=== PATIENT | male | born 1940 | race Caucasian/White ===

== ENCOUNTER 2017-09-21 08:31 | Outpatient (CLI) | payer OTHER | END 2017-09-21 20:59 | disposition home or self-care (01) | LOC: SMI 08:31 → EEVIPCON 08:31 → SMI 20:59 | PROVIDERS: ATTEND Psychiatry & Neurology Neurology | DX: I63.9 Cerebral infarction, unspecified (principal); N19 Unspecified kidney failure; R53.1 Weakness | CPT/HCPCS: 70544; 70547; 70551 ==

== ENCOUNTER 2019-06-05 18:19 | Emergency (ER) | payer OTHER, MEDICARE ==
[~2019-06-05] VITALS: Ht 162.6 cm; Wt 59.9 kg
[2019-06-05 18:25] VITALS: BP_SYST 108
[2019-06-05] MEDS ORDERED: NS 500 ML IV ONE (18:45)
[2019-06-05] MEDS ORDERED: NACL 0.9% 1,000 ML IV ONE (18:45)
[2019-06-05] MEDS ORDERED: FOLI-43 PO (19:06)
[2019-06-05] MEDS ORDERED: METO25TA3 PO (19:06)
[2019-06-05] MEDS ORDERED: MIDO5TAB PO (19:06)
[2019-06-05] MEDS ORDERED: CEL20 PO (19:06)
[2019-06-05] MEDS ORDERED: DONE10TA44 PO (19:06)
[2019-06-05] MEDS ORDERED: ASPI-1153 PO (19:06)
[2019-06-05] MEDS ORDERED: FINA5TAB3 PO (19:06)
[2019-06-05] MEDS ORDERED: TAMS-11 PO (19:06)
[2019-06-05] MEDS ORDERED: MIRT15TA7 PO (19:06)
[2019-06-05] MEDS ORDERED: SENN-104 PO (19:06)
[2019-06-05] MEDS ORDERED: LIP10 PO (19:06)
[2019-06-05] MEDS ORDERED: OLAN2.5T29 PO (19:06)
[2019-06-05] MEDS ORDERED: FERR140T2 PO (19:06)
[2019-06-05] MEDS ORDERED: PRO40 PO (19:06)
[2019-06-05 19:15] LABS: BASOPHILS # (AUTO) 0.1 K/uL (0.0-0.2); BASOPHILS % (AUTO) 0.8 % (0.0-2.0); EOSINOPHILS # (AUTO) 0.3 K/uL (0.0-0.4); EOSINOPHILS % (AUTO) 2.9 % (0.0-4.0); HEMATOCRIT 32.6 % (36-54); HEMOGLOBIN 10.7 g/dL (14.0-18.0); LYMPHOCYTES # (AUTO) 0.8 K/uL (1.0-5.5); LYMPHOCYTES % (AUTO) 8.8 % (20.5-51.5); MEAN CORPUSCULAR HEMOGLOBIN 31 pg (27-31); MEAN CORPUSCULAR HGB CONC 33 % (32-36); MEAN CORPUSCULAR VOLUME 95 fL (79.0-98.0); MONOCYTES % (AUTO) 10.6 % (1.7-9.3); NEUTROPHILS # (AUTO) 7.2 K/uL (1.8-7.7); NEUTROPHILS % (AUTO) 76.9 % (40.0-70.0); PLATELET COUNT (AUTO) 234 K/uL (130-430); RED BLOOD CELL COUNT(AUTO) 3.42 MIL/uL (4.2-6.2); RED CELL DISTRIBUTION WIDTH 14.8 % (9.0-15.0); WHITE BLOOD COUNT (AUTO) 9.4 K/uL (4.8-10.8)
[2019-06-05 19:28] LABS: ANION GAP 8 (5-15); CALCIUM 9.4 mg/dL (8.4-11.0); CHLORIDE 103 mmol/L (98-107); CREATININE 7.32 mg/dL (0.55-1.30); GLUCOSE 115 mg/dL (70-99); SODIUM SERUM 133 mmol/L (136-145); UREA NITROGEN, BLOOD 63 mg/dL (8-21)
[2019-06-05 19:33] LABS: ALANINE AMINOTRANSFERASE 22 U/L (12-78); ALBUMIN 2.6 g/dL (3.4-4.8); ASPARTATE AMINOTRANSFERASE 11 U/L (10-37); TOTAL BILIRUBIN 0.4 mg/dL (0.0-1.0)
[2019-06-05 19:37] LABS: POTASSIUM 6.1 mmol/L (3.5-5.1)
[2019-06-05] MEDS ORDERED: SODIUM POLYSTYRENE SULFONATE 15 GM/60 ML UDBTL PO ONE (20:15)
[2019-06-05 22:09] VITALS: BP_SYST 125
== END 2019-06-05 22:09 | disposition home or self-care (01) ==
LOC: SED 18:19
DX: E87.5 Hyperkalemia (principal); R53.1 Weakness; I10 Essential (primary) hypertension; Z86.73 Personal history of transient ischemic attack (TIA), and cerebral infarction without residual deficits; Z79.82 Long term (current) use of aspirin; Z79.899 Other long term (current) drug therapy
CPT/HCPCS: 36415; 71045; 80053; 81002; 83605; 83880; 85025; 87040; 93005; 99284; J7040; 81025